=== PATIENT | female | born 1990 | race African-American/Black ===

== ENCOUNTER 2017-06-12 19:15 | Emergency (ER) | payer MEDICAID ==
[2016-10-07 09:23] VITALS: BMI 23.9
[~2017-06-12 19:15] MED LIST: FERROUS SULFAT325 MG PO; HYDROCODONE-APA1 TAB PO; IBUPROFEN600 MG PO; PRENATAL GUMMY PO; [UNRECOGNIZED DRUG - OTHER]
[2017-06-12 20:28] LABS: BASOPHILS 0.1 % (0-2); EOSINOPHILS 0.1 % (0-7); HEMOGLOBIN 12.7 g/dL (12-16); IMMATURE GRANULOCYTES 0.2 % (0-5); LYMPHOCYTES 9.4 % (15-50); MCHC 35.3 g/dL (31.0-37.0); MCV 68.1 fL (80.0-100.0); MEAN PLATELET VOLUME 10.6 fL (7.4-10.4); MONOCYTES 4.5 % (2-11); NEUTROPHILS 85.7 % (40-80); RBC 5.29 10x6/uL (4.00-5.40); RDW 17.1 % (11.5-14.5); WBC 12.4 10x3/uL (4.8-10.8)
[2017-06-12 20:38] LABS: PLATELET COUNT 246 10x3/uL (130-400)
[2017-06-12 20:40] LABS: APPEARANCE HAZY (CLEAR); BILIRUBIN NEGATIVE (NEGATIVE); COLOR YELLOW (YELLOW); GLUCOSE NEGATIVE (NEGATIVE); KETONE NEGATIVE (NEGATIVE); LEUKOCYTE ESTERASE NEGATIVE (NEGATIVE); NITRITE NEGATIVE (NEGATIVE); PH 6.5 (5.0-6.0); PROTEIN NEGATIVE (NEGATIVE); SPECIFIC GRAVITY 1.005 (1.005-1.020); UROBILINOGEN NORMAL (NORMAL)
[2017-06-12 20:41] LABS: HCG URINE NEGATIVE (NEGATIVE)
[2017-06-12 20:48] LABS: ALBUMIN 4.1 g/dL (3.4-5.0); ALKALINE PHOSPHATASE 99 U/L (46-116); ALT (SGPT) 16 U/L (10-68); BILIRUBIN - TOTAL 0.76 mg/dL (0.2-1.3); CALC OSMOLALITY 265 mosm/kg (275-300); CALCIUM 9.4 mg/dL (8.5-10.1); CARBON DIOXIDE 28.8 mmol/L (21.0-32.0); CHLORIDE - SERUM 98 mmol/L (98-107); CREATININE - SERUM 0.8 mg/dL (0.6-1.3); GLUCOSE 94 mg/dL (74-106); POTASSIUM - SERUM 3.7 mmol/L (3.5-5.1); PROTEIN - SERUM 8.6 g/dL (6.4-8.2); SODIUM 134 mmol/L (136-145); UREA NITROGEN 6 mg/dL (7-18); eGFR NON AFRICAN AMERICAN > 90 mL/min (90-120)
== END 2017-06-12 23:00 | disposition home or self-care (01) ==
LOC: D.ER 19:15
PROVIDERS: Emergency Medicine
DX: G44.209 Tension-type headache, unspecified, not intractable (principal); S39.012A Strain of muscle, fascia and tendon of lower back, initial encounter; X58.XXXA Exposure to other specified factors, initial encounter; Y93.89 Activity, other specified; Y92.89 Other specified places as the place of occurrence of the external cause

== ENCOUNTER 2017-12-09 16:34 | Emergency (ER) | payer MEDICAID ==
[2016-10-07 09:23] VITALS: BMI 23.9
[2017-12-10 00:01] LABS: APPEARANCE CLOUDY (CLEAR); COLOR YELLOW (YELLOW)
[2017-12-10 00:02] LABS: BACTERIA MANY /hpf (NONE SEEN); BILIRUBIN NEGATIVE (NEGATIVE); GLUCOSE NEGATIVE (NEGATIVE); KETONE LARGE mg/dL (NEGATIVE); NITRITE POSITIVE (NEGATIVE); PROTEIN 2+ mg/dL (NEGATIVE); UROBILINOGEN NORMAL (NORMAL)
== END 2017-12-10 01:03 | disposition home or self-care (01) ==
LOC: D.ER 16:34
PROVIDERS: Family Medicine
DX: G43.909 Migraine, unspecified, not intractable, without status migrainosus (principal); S39.012A Strain of muscle, fascia and tendon of lower back, initial encounter; X58.XXXA Exposure to other specified factors, initial encounter; Y93.89 Activity, other specified; Y92.89 Other specified places as the place of occurrence of the external cause; N39.0 Urinary tract infection, site not specified

== ENCOUNTER 2018-07-01 21:28 | Emergency (ER) | payer MEDICAID ==
[~2018-07-01] VITALS: Ht 157.5 cm; Wt 50.0 kg
[2018-07-01 21:57] VITALS: Ht 157.5 cm; Wt 50.0 kg
[2018-07-02] MEDS ORDERED: SKELAXIN800 MG PO (00:27)
[2018-07-02] MEDS ORDERED: STERAPRED DS 1210 MG PO (00:27)
[2018-07-02 00:37] VITALS: BP 102/71
== END 2018-07-02 00:37 | disposition home or self-care (01) ==
LOC: D.ER 21:28
DX: M54.12 Radiculopathy, cervical region (principal); S16.1XXA Strain of muscle, fascia and tendon at neck level, initial encounter; X58.XXXA Exposure to other specified factors, initial encounter; Y93.89 Activity, other specified; Y92.89 Other specified places as the place of occurrence of the external cause; F17.200 Nicotine dependence, unspecified, uncomplicated

== ENCOUNTER 2019-01-12 15:59 | Emergency (ER) | payer MEDICAID ==
[~2019-01-12] VITALS: Ht 157.5 cm; Wt 52.3 kg
[~2019-01-12 15:59] MED LIST changes: +SKELAXIN800 MG PO; +STERAPRED DS 1210 MG PO
[2019-01-12 16:29] VITALS: Ht 157.5 cm; Wt 52.3 kg
[2019-01-12] MEDS ORDERED: ZPAK PO (17:36)
[2019-01-12] MEDS ORDERED: PHENERGAN DM SYR5 ML PO (17:36)
[2019-01-12 18:11] VITALS: BP 99/75
== END 2019-01-12 17:57 | disposition home or self-care (01) ==
LOC: D.ER 15:59
DX: J06.9 Acute upper respiratory infection, unspecified (principal); J40 Bronchitis, not specified as acute or chronic; M79.18 Myalgia, other site; R50.9 Fever, unspecified; R09.89 Other specified symptoms and signs involving the circulatory and respiratory systems

== ENCOUNTER 2019-12-31 15:53 | Inpatient (IN) | payer MEDICAID ==
[~2019-12-31] VITALS: Ht 157.5 cm; Wt 57.2 kg
[~2019-12-31 15:53] MED LIST changes: +PHENERGAN DM SYR5 ML PO; +ZPAK PO
[2019-12-31 16:21] LABS: BILIRUBIN NEGATIVE (NEGATIVE); GLUCOSE NEGATIVE (NEGATIVE); KETONE LARGE mg/dL (NEGATIVE); NITRITE NEGATIVE (NEGATIVE); UROBILINOGEN NORMAL (NORMAL)
[2019-12-31 16:22] LABS: EPITHELIAL CELLS 0-5 /hpf (0-5); RED CELLS - URINE 0-5 /hpf (0-5)
[2019-12-31 16:23] LABS: BACTERIA MODERATE /hpf (NEGATIVE)
[2019-12-31 16:24] LABS: WHITE CELLS - URINE 25-50 /hpf (NEGATIVE)
[2019-12-31 16:31] LABS: BASOPHILS 0.1 % (0-2); EOSINOPHILS 0 % (0-7); HEMATOCRIT 33.4 % (36.0-48.0); IMMATURE GRANULOCYTES 0.5 % (0-5); LYMPHOCYTES 13.9 % (15-50); MCH 24.9 pg (26.0-34.0); MCHC 35.9 g/dL (31.0-37.0); MCV 69.3 fL (80.0-100.0); MEAN PLATELET VOLUME 9.9 fL (7.4-10.4); MONOCYTES 11.6 % (2-11); NEUTROPHILS 73.9 % (40-80); PLATELET COUNT 175 10x3/uL (130-400); RBC 4.82 10x6/uL (4.00-5.40); RDW 16.2 % (11.5-14.5)
[2019-12-31 16:41] LABS: ANION GAP 20.5 mmol/L (8-16); CALCIUM 8.4 mg/dL (8.5-10.1); CARBON DIOXIDE 22.5 mmol/L (21.0-32.0)
[2019-12-31 16:47] LABS: ALBUMIN 3.5 g/dL (3.4-5.0); BILIRUBIN - TOTAL 0.75 mg/dL (0.2-1.3); PROTEIN - SERUM 7.8 g/dL (6.4-8.2)
[2019-12-31 17:35] LABS: % SATURATION 4 % (15-55); IRON 13 ug/dl (35-150); TOTAL IRON BIND CAPACITY 322 ug/dl (260-445); UNSAT IRON BIND CAPACITY 309 ug/dl (150-375)
[2019-12-31] MEDS ORDERED: TAMIFLU75 MG PO (18:35)
[2019-12-31 20:30] VITALS: BP 99/57
[2019-12-31 22:35] VITALS: BP 99/57; BMI 22.0
[2020-01-01 00:30] VITALS: BP 98/64
[2020-01-01 04:30] VITALS: BP 99/66
[2020-01-01 05:29] LABS: BASOPHILS 0.1 % (0-2); EOSINOPHILS 0 % (0-7); HEMATOCRIT 29.1 % (36.0-48.0); HEMOGLOBIN 10.2 g/dL (12-16); IMMATURE GRANULOCYTES 0.2 % (0-5); LYMPHOCYTES 14.1 % (15-50); MCH 24.5 pg (26.0-34.0); MCHC 35.1 g/dL (31.0-37.0); MEAN PLATELET VOLUME 10.3 fL (7.4-10.4); MONOCYTES 14.5 % (2-11); NEUTROPHILS 71.1 % (40-80); PLATELET COUNT 159 10x3/uL (130-400); RBC 4.16 10x6/uL (4.00-5.40); RDW 16.5 % (11.5-14.5); WBC 12.3 10x3/uL (4.8-10.8)
[2020-01-01 05:58] LABS: CALCIUM 7.8 mg/dL (8.5-10.1); CARBON DIOXIDE 25.3 mmol/L (21.0-32.0); CHLORIDE - SERUM 101 mmol/L (98-107); GLUCOSE 106 mg/dL (74-106); POTASSIUM - SERUM 3.2 mmol/L (3.5-5.1); SODIUM 135 mmol/L (136-145)
[2020-01-01 06:03] LABS: CALC OSMOLALITY 266 mosm/kg (275-300); CREATININE - SERUM 0.7 mg/dL (0.6-1.3); UREA NITROGEN 3 mg/dL (7-18); eGFR NON AFRICAN AMERICAN > 90 mL/min (90-120)
[2020-01-01 08:06] VITALS: BP 91/55
[2020-01-01 11:39] LABS: % SATURATION 5 % (15-55); IRON 14 ug/dl (35-150); TOTAL IRON BIND CAPACITY 243 ug/dl (260-445); UNSAT IRON BIND CAPACITY 229 ug/dl (150-375)
[2020-01-01 11:47] VITALS: BP 101/64
[2020-01-01 12:13] VITALS: Ht 157.5 cm; Wt 57.2 kg
[2020-01-01 14:56] LABS: UDS - AMPHET NEGATIVE QUAL (NEGATIVE); UDS - BARB NEGATIVE QUAL (NEGATIVE); UDS - BENZO NEGATIVE QUAL (NEGATIVE); UDS - COCAINE NEGATIVE QUAL (NEGATIVE); UDS - OPIATE POSITIVE QUAL (NEGATIVE); UDS - PCP NEGATIVE QUAL (NEGATIVE); UDS - THC NEGATIVE QUAL (NEGATIVE)
[2020-01-01 15:55] VITALS: BP 93/53
[2020-01-01 20:30] VITALS: BP 98/61
[2020-01-02] VITALS (7 sets, daily range): BP systolic 100–129; BP diastolic 60–93
[2020-01-02 06:07] LABS: CALC OSMOLALITY 260 mosm/kg (275-300); CALCIUM 8.3 mg/dL (8.5-10.1); CARBON DIOXIDE 23.1 mmol/L (21.0-32.0); CHLORIDE - SERUM 100 mmol/L (98-107); CREATININE - SERUM 0.7 mg/dL (0.6-1.3); GLUCOSE 84 mg/dL (74-106); SODIUM 132 mmol/L (136-145); UREA NITROGEN 3 mg/dL (7-18); eGFR NON AFRICAN AMERICAN > 90 mL/min (90-120)
[2020-01-02 06:09] LABS: POTASSIUM - SERUM 3.3 mmol/L (3.5-5.1)
[2020-01-02 07:34] LABS: HEMATOCRIT 28.5 % (36.0-48.0); MCH 24.4 pg (26.0-34.0); MCHC 35.1 g/dL (31.0-37.0); MCV 69.5 fL (80.0-100.0); MEAN PLATELET VOLUME 10.9 fL (7.4-10.4); PLATELET COUNT 173 10x3/uL (130-400); RDW 16.6 % (11.5-14.5); WBC 14.1 10x3/uL (4.8-10.8)
[2020-01-02 10:35] LABS: ANISOCYTOSIS OCC; LYMPHOCYTES 10 % (15-50); MONOCYTES 11 % (2-11); NEUTROPHILS 79 % (40-80); PLATELET ESTIMATE NORMAL; ROULEAUX OCC; SMUDGE CELLS OCC
[2020-01-03 03:29] VITALS: BP 102/66
[2020-01-03 06:33] LABS: BASOPHILS 0.2 % (0-2); EOSINOPHILS 0.7 % (0-7); HEMATOCRIT 29.6 % (36.0-48.0); HEMOGLOBIN 10.7 g/dL (12-16); IMMATURE GRANULOCYTES 0.3 % (0-5); LYMPHOCYTES 25.1 % (15-50); MCH 24.8 pg (26.0-34.0); MCHC 36.1 g/dL (31.0-37.0); MCV 68.5 fL (80.0-100.0); MEAN PLATELET VOLUME 10.4 fL (7.4-10.4); MONOCYTES 12.2 % (2-11); NEUTROPHILS 61.5 % (40-80); RBC 4.32 10x6/uL (4.00-5.40); RDW 16.5 % (11.5-14.5)
[2020-01-03 06:37] LABS: PLATELET COUNT 220 10x3/uL (130-400); WBC 9.1 10x3/uL (4.8-10.8)
[2020-01-03 06:41] LABS: CALC OSMOLALITY 267 mosm/kg (275-300); CALCIUM 8.5 mg/dL (8.5-10.1); CARBON DIOXIDE 27.6 mmol/L (21.0-32.0); CHLORIDE - SERUM 101 mmol/L (98-107); CREATININE - SERUM 0.7 mg/dL (0.6-1.3); GLUCOSE 86 mg/dL (74-106); POTASSIUM - SERUM 3.3 mmol/L (3.5-5.1); SODIUM 136 mmol/L (136-145); eGFR NON AFRICAN AMERICAN > 90 mL/min (90-120)
[2020-01-03 06:43] LABS: UREA NITROGEN 5 mg/dL (7-18)
[2020-01-03 09:58] VITALS: BP 104/71
[2020-01-03 12:56] VITALS: BP 96/56
[2020-01-03 18:33] VITALS: BP 99/65
[2020-01-03 20:00] VITALS: BP 100/63
[2020-01-04] VITALS: BP 96/61
[2020-01-04 04:00] VITALS: BP 103/69
[2020-01-04 07:27] LABS: BASOPHILS 0.4 % (0-2); HEMATOCRIT 28.5 % (36.0-48.0); IMMATURE GRANULOCYTES 0.4 % (0-5); LYMPHOCYTES 36.2 % (15-50); MCH 24.2 pg (26.0-34.0); MCHC 35.1 g/dL (31.0-37.0); MEAN PLATELET VOLUME 10.9 fL (7.4-10.4); MONOCYTES 10.1 % (2-11); NEUTROPHILS 51.9 % (40-80); RBC 4.13 10x6/uL (4.00-5.40); RDW 16.4 % (11.5-14.5); WBC 7.8 10x3/uL (4.8-10.8)
[2020-01-04 07:35] LABS: PLATELET COUNT 266 10x3/uL (130-400)
[2020-01-04 07:55] LABS: CALCIUM 8.3 mg/dL (8.5-10.1); CARBON DIOXIDE 26.9 mmol/L (21.0-32.0); CHLORIDE - SERUM 106 mmol/L (98-107); GLUCOSE 90 mg/dL (74-106); POTASSIUM - SERUM 3.5 mmol/L (3.5-5.1); SODIUM 140 mmol/L (136-145)
[2020-01-04 07:57] LABS: CALC OSMOLALITY 275 mosm/kg (275-300); CREATININE - SERUM 0.5 mg/dL (0.6-1.3); UREA NITROGEN 3 mg/dL (7-18); eGFR NON AFRICAN AMERICAN > 90 mL/min (90-120)
[2020-01-04 09:00] VITALS: BP 99/61
[2020-01-04 12:00] VITALS: BP 108/66
[2020-01-04] MEDS ORDERED: MACROBID100 MG PO (13:22)
--- NOTE | 2020-01-04 17:08 | MORECARE ---
CASE MANAGEMENT DISCHARGE SUMMARY PATIENT: ANNEMARIE LAO UNIT: [id number] ADM DATE: 12/31/19 AGE: 29 : 88 SEX: F ROOM/BED: D.2107 AUTHOR: BRONSON HUTCHISON PHYSICIAN: REFERRING PHYSICIAN: ISA WASSERMAN MD DATE OF SERVICE: 01/04/20 Discharge Plan Patient Name: ANNEMARIE LAO [facility] [facility] 1990 Planned Disposition: Home Anticipated Discharge Date: 01/04/20 Discharge Date: 01/04/2020 Expected LOS: 4 Initial Reviewer: [email or web address] Initial Review Date: 01/04/2020 Generated: 01/04/20 6:08 pm DCPIA - Discharge Planning Initial Assessment Updated by [email or web address]: Hakeem Vazquez on 01/04/20 5:07 pm * Is the patient Alert and Oriented? Yes * How many steps to enter\exit or inside your home? 10 * PCP DR. LISETH LUEVANO * [facility] * Preadmission Environment Home with Family * ADLs Independent * Equipment None * Other Equipment NO MEDICAL EQUIPMENT PROVIDER PREFERENCE * List name and contact numbers for known caregivers / representatives who currently or will assist patient after discharge: MOTHER BAPTISTE, * Verbal permission to speak to the caregivers and representatives has been obtained from the patient. N/A * Community resources currently utilized None * Please name any agencies selected above. NONE * Additional services required to return to the preadmission environment? No * Can the patient safely return to the preadmission environment? Yes * Has this patient been hospitalized within the prior 30 days at any hospital? No Patient Name: ANNEMARIE LAO Page [id number] at 1708 All edits/amendments must be made on the electronic document DICTATION DATE: 01/04/201707 REFLEXOLOGIST: JACLYN 01/04/201707 RPT#: [id number] DC DATE:01/04/20 STATUS: DIS IN [facility] [address] [place] [address] END OF REPORT
--- NOTE | 2020-01-04 17:16 | MORECARE ---
CASE MANAGEMENT DISCHARGE SUMMARY PATIENT: ANNEMARIE LOA UNIT: [id number] ADM DATE: 12/31/19 AGE: 29 : 88 SEX: F ROOM/BED: D.2104 AUTHOR: KIANNA,DOC PHYSICIAN: REFERRING PHYSICIAN: ISA WASSERMAN MD DATE OF SERVICE: 01/04/20 Discharge Plan Patient Name: ANNEMARIE LAO Facility: [facility]:[place] : 1990 Planned Disposition: Home Anticipated Discharge Date: 01/04/20 Discharge Date: 01/04/2020 Expected LOS: 4 Initial Reviewer: [email or web address] Initial Review Date: 01/04/2020 Generated: 01/04/20 6:16 pm Comments DCP- Discharge Planning Updated by [email or web address]: Hakeem Vazquez on 01/04/20 4:[address] Patient Name: ANNEMARIE LAO Admission Status: ER Accout number: [id number] Admission Date: 12-31-2019 : 1990 Admission Diagnosis: Attending: ISA WASSERMAN Current LOS: 4 Anticipated DC Date: 01-04-2020 Planned Disposition: Home Primary Insurance: MEDICAID [id number] Discharge Planning Comments: CM MET WITH PT IN ROOM TO DISCUSS DISCHARGE PLANNING AND NEEDS. PT REPORTS LIVING AT HOME INDEPENDENTLY WITH HER MINOR CHILDREN. PT HAS NO MEDICAL EQUIPMENT AND NO OUTSIDE SERVICES ASSISTING IN THE HOME. CM DISCUSSED AVAILABILITY OF HOME HEALTH, REHAB SERVICES AND MEDICAL EQUIPMENT. PT DENIES DISCHARGE NEEDS, REPORTS HER FRIEND WILL PICK HER UP FOR DISCHARGE HOME. Senior Counsel Commercial: Hakeem Vazquez DCPIA - Discharge Planning Initial Assessment Updated by [email or web address]: Hakeem Vazquez on 01/04/20 5:07 pm * Is the patient Alert and Oriented? Yes * How many steps to enter\exit or inside your home? 10 * PCP DR. LISETH LUEVANO * [facility] * Preadmission Environment Home with Family * ADLs Independent * Equipment None * Other Equipment NO MEDICAL EQUIPMENT PROVIDER PREFERENCE * List name and contact numbers for known caregivers / representatives who currently or will assist patient after discharge: DANIAL LAO, MOTHER, * Verbal permission to speak to the caregivers and representatives has been obtained from the patient. N/A * Community resources currently utilized None * Please name any agencies selected above. NONE * Additional services required to return to the preadmission environment? No * Can the patient safely return to the preadmission environment? Yes * Has this patient been hospitalized within the prior 30 days at any hospital? No Last DP export: 01/04/20 4:08 pm Patient Name: ANNEMARIE LAO Page [id number] at 1716 All edits/amendments must be made on the electronic document DICTATION DATE: 01/04/201715 CHOIR LEADER: JACLYN 01/04/201715 RPT#: [id number] DC DATE:01/04/20 STATUS: DIS IN [facility] [address] [place] [address] END OF REPORT
== END 2020-01-04 16:05 | disposition home or self-care (01) | DRG 690 ==
LOC: D.ER 15:53 → D.M2 17:16
PROVIDERS: Emergency Medicine; ADMIT Internal Medicine Nephrology; ATTEND Internal Medicine Nephrology
DX: N12 Tubulo-interstitial nephritis, not specified as acute or chronic (principal); E87.1 Hypo-osmolality and hyponatremia; N39.0 Urinary tract infection, site not specified; N17.9 Acute kidney failure, unspecified; D50.9 Iron deficiency anemia, unspecified; E87.6 Hypokalemia; B96.20 Unspecified Escherichia coli [E. coli] as the cause of diseases classified elsewhere; Z87.891 Personal history of nicotine dependence